=== PATIENT | female | born 1995 | race African-American/Black ===

== ENCOUNTER 2019-03-27 15:11 | Emergency (ER) | payer SELFPAY ==
[~2019-03-27] VITALS: Ht 162.6 cm; Wt 80.9 kg
[2019-03-27 15:29] VITALS: BP 126/73; TEMP 98.8
[2019-03-27] MEDS ORDERED: CRYSELLE 30 MCG1 TAB PO (16:02)
[2019-03-27 16:18] LABS: COLLECTION METHOD CLEAN CATCH
[2019-03-27 16:25] LABS: MUCOUS Present /lpf; PH 8 (5-8); SQUAMOUS EPITHELIAL 0-2 /hpf; URINE APPEARANCE Clear; URINE BACTERIA None Seen /hpf; URINE BILIRUBIN Negative (NEGATIVE); URINE BLOOD Negative (NEGATIVE); URINE COLOR Colorless; URINE GLUCOSE Negative (NEGATIVE); URINE KETONE Negative (NEGATIVE); URINE LEUKOCYTE ESTERASE Negative (NEGATIVE); URINE NITRATE Negative (NEGATIVE); URINE PROTEIN(semi-quant) Negative (NEGATIVE); URINE RBC 0-2 /hpf; URINE UROBILINOGEN Negative (NEGATIVE)
[2019-03-27 16:51] VITALS: PULSE 79
== END 2019-03-27 16:51 | disposition home or self-care (01) ==
LOC: COL.ER 15:11
PROVIDERS: Nurse Practitioner Primary Care
DX: R10.30 Lower abdominal pain, unspecified (principal); F12.90 Cannabis use, unspecified, uncomplicated

== ENCOUNTER 2019-05-06 21:58 | Emergency (ER) | payer SELFPAY ==
[~2019-05-06 21:58] MED LIST: CRYSELLE 30 MCG1 TAB PO
[2019-05-06 22:16] VITALS: TEMP 98.8
[2019-05-06 22:31] LABS: COLLECTION METHOD CLEAN CATCH
[2019-05-06 22:37] LABS: PH 8 (5-8); SQUAMOUS EPITHELIAL 0-2 /hpf; URINE APPEARANCE Clear; URINE BACTERIA Rare /hpf; URINE BILIRUBIN Negative (NEGATIVE); URINE BLOOD Negative (NEGATIVE); URINE COLOR Straw; URINE GLUCOSE Negative (NEGATIVE); URINE KETONE Negative (NEGATIVE); URINE LEUKOCYTE ESTERASE Trace (NEGATIVE); URINE NITRATE Negative (NEGATIVE); URINE PROTEIN(semi-quant) Negative (NEGATIVE); URINE RBC 0-2 /hpf; URINE UROBILINOGEN Negative (NEGATIVE)
[2019-05-07] MEDS ORDERED: DOXYCYCLINE 10100 MG PO (02:03)
[2019-05-07 02:05] VITALS: BP 131/76; PULSE 63
== END 2019-05-07 02:05 | disposition home or self-care (01) ==
LOC: COL.ER 21:58
PROVIDERS: Emergency Medicine
DX: R10.2 Pelvic and perineal pain (principal)
CPT/HCPCS: J0696

== ENCOUNTER 2019-08-27 01:56 | Emergency (ER) | payer SELFPAY ==
[~2019-08-27] VITALS: Ht 165.1 cm; Wt 81.8 kg
[~2019-08-27 01:56] MED LIST changes: +DOXYCYCLINE 10100 MG PO
[2019-08-27 01:59] VITALS: BP 136/81; TEMP 97.8
[2019-08-27 02:36] LABS: BASO % 0.3 % (0.0-2.0); EOS # 0.1 (0.0-0.7); EOS % 1.2 % (0-4.0); GRAN # 3.7 (1.4-6.5); GRAN % 61.1 % (42.2-75.2); HEMATOCRIT 41.5 % (37.0-47.0); HEMOGLOBIN 13.5 g/dl (12.5-16.0); LYMPH # 1.9 (1.2-3.4); LYMPH % 31.7 % (20.0-51.0); MEAN CELL VOLUME 90 fl (80.0-100.0); MEAN CORPUSCULAR HEMOGLOBIN 29 pg (27.0-31.0); MEAN CORPUSCULAR HGB CONC 33 g/dl (33.0-37.0); MEAN PLATELET VOLUME 10.7 fl (7.4-10.4); MONO # 0.3 (0.1-0.6); MONO % 5.5 % (1.7-9.3); PLATELET COUNT 193 K/mm3 (130-400); RED BLOOD COUNT 4.63 M/mm3 (4.10-5.30); REDCELL DISTRIBUTION WIDTH-CV 12.8 % (11.5-14.5)
[2019-08-27 02:56] LABS: ALANINE AMINOTRANSFERASE 14 U/L (9-52); ALBUMIN 4.3 gm/dL (3.5-5.0); ALKALINE PHOSPHATASE 62 U/L (50-136); ANION GAP 9 mmol/L (7-16); AST,SGOT 25 U/L (15-37); BILIRUBIN,TOTAL 0.3 mg/dL (0.0-1.0); BLOOD UREA NITROGEN 10 mg/dL (7-17); C-REACTIVE PROTEIN < 0.5 mg/dL (0.0-0.9); CARBON DIOXIDE 29 mmol/L (22-30); CHLORIDE 103 mmol/L (98-107); CREATININE, serum 0.91 (0.52-1.25); GLUCOSE 107 mg/dL (74-106); LIPASE 45 U/L (23-300); POTASSIUM 3.5 mmol/L (3.4-5.0); SODIUM 141 mmol/L (137-145); TOTAL PROTEIN 7.4 gm/dL (6.4-8.2)
[2019-08-27 03:18] LABS: COLLECTION METHOD CLEAN CATCH
[2019-08-27 03:22] LABS: MUCOUS Present /lpf; PH 6 (5-8); URINE APPEARANCE Hazy; URINE BACTERIA None Seen /hpf; URINE BILIRUBIN Negative (NEGATIVE); URINE BLOOD Negative (NEGATIVE); URINE COLOR Yellow; URINE GLUCOSE Negative (NEGATIVE); URINE KETONE Trace (NEGATIVE); URINE LEUKOCYTE ESTERASE Negative (NEGATIVE); URINE NITRATE Negative (NEGATIVE); URINE PROTEIN(semi-quant) Negative (NEGATIVE); URINE RBC 0-2 /hpf; URINE UROBILINOGEN Negative (NEGATIVE)
[2019-08-27 04:07] VITALS: PULSE 64
== END 2019-08-27 04:07 | disposition home or self-care (01) ==
LOC: COL.ER 01:56
PROVIDERS: Emergency Medicine
DX: R10.12 Left upper quadrant pain (principal); R10.11 Right upper quadrant pain
CPT/HCPCS: C9113; J2405; J7030

== ENCOUNTER → 2019-09-08 | Outpatient (CLI) | payer SELFPAY | LOC: COL.RAD 07:27 | DX: R10.11 Right upper quadrant pain (principal); R10.13 Epigastric pain ==

== ENCOUNTER 2019-11-12 00:30 | Emergency (ER) | payer SELFPAY ==
[~2019-11-12] VITALS: Ht 167.6 cm; Wt 77.3 kg
[2019-11-12 00:41] VITALS: BP 123/75; TEMP 102.5
[2019-11-12 02:25] VITALS: PULSE 112
== END 2019-11-12 02:25 | disposition home or self-care (01) ==
LOC: COL.ER 00:30
DX: B34.9 Viral infection, unspecified (principal)

== ENCOUNTER 2021-02-20 15:47 | Emergency (ER) | payer SELFPAY ==
[~2021-02-20] VITALS: Ht 167.6 cm; Wt 100.0 kg
[2021-02-20 15:53] VITALS: TEMP 98
[2021-02-20 15:58] VITALS: BP 134/77
[2021-02-20 16:50] LABS: BASO % 0.4 % (0.0-2.0); EOS # 0.1 (0.0-0.7); EOS % 2.5 % (0-4.0); GRAN % 62.4 % (42.2-75.2); HEMATOCRIT 43.6 % (37.0-47.0); LYMPH # 1.5 (1.2-3.4); LYMPH % 30.7 % (20.0-51.0); MEAN CELL VOLUME 88 fl (80.0-100.0); MEAN CORPUSCULAR HEMOGLOBIN 28 pg (27.0-31.0); MEAN CORPUSCULAR HGB CONC 32 g/dl (33.0-37.0); MEAN PLATELET VOLUME 10.5 fl (7.4-10.4); MONO # 0.2 (0.1-0.6); MONO % 3.8 % (1.7-9.3); PLATELET COUNT 248 K/mm3 (130-400); RED BLOOD COUNT 4.93 M/mm3 (4.10-5.30); REDCELL DISTRIBUTION WIDTH-CV 13.1 % (11.5-14.5)
[2021-02-20 17:02] LABS: ALBUMIN 4.4 gm/dL (3.5-5.0); BILIRUBIN,TOTAL 0.2 mg/dL (0.0-1.0); CREATININE, serum 0.71 (0.52-1.25); POTASSIUM 3.7 mmol/L (3.4-5.0); TOTAL PROTEIN 8.2 gm/dL (6.4-8.2)
[2021-02-20 17:32] LABS: TSH w REFLEX 0.837 uIU/mL (0.465-4.680)
[2021-02-20 17:50] VITALS: PULSE 71
== END 2021-02-20 17:50 | disposition home or self-care (01) ==
LOC: COL.ER 15:47
PROVIDERS: Nurse Practitioner Primary Care
DX: N92.6 Irregular menstruation, unspecified (principal); F17.210 Nicotine dependence, cigarettes, uncomplicated; Z32.02 Encounter for pregnancy test, result negative; Z88.6 Allergy status to analgesic agent

== ENCOUNTER 2021-10-29 17:54 | Emergency (ER) | payer SELFPAY ==
[~2021-10-29] VITALS: Ht 167.6 cm; Wt 88.2 kg
[2021-10-29 19:56] VITALS: BP 110/62; PULSE 70; TEMP 98.1
== END 2021-10-29 19:59 | disposition home or self-care (01) ==
LOC: COL.ER 17:54
DX: S56.911A Strain of unspecified muscles, fascia and tendons at forearm level, right arm, initial encounter (principal); V49.40XA Driver injured in collision with unspecified motor vehicles in traffic accident, initial encounter

== ENCOUNTER → 2022-03-06 | Outpatient (CLI) | payer SELFPAY ==
[~2022-03-06] MED LIST changes: +MAGIC MOUTH PO
== END ==
LOC: COL.RAD 10:49
DX: Z30.431 Encounter for routine checking of intrauterine contraceptive device (principal); R10.2 Pelvic and perineal pain

== ENCOUNTER 2022-03-16 10:29 | Emergency (ER) | payer SELFPAY ==
[~2022-03-16] VITALS: Ht 167.6 cm; Wt 86.2 kg
[~2022-03-16 10:29] MED LIST changes: -MAGIC MOUTH PO
[2022-03-16 10:35] VITALS: BP 128/88; TEMP 98.2
[2022-03-16 11:45] LABS: STREP SCREEN NEGATIVE
[2022-03-16] MEDS ORDERED: MAGIC MOUTH PO (12:14)
[2022-03-16 13:00] VITALS: PULSE 90
== END 2022-03-16 13:00 | disposition home or self-care (01) ==
LOC: COL.ER 10:29
PROVIDERS: Nurse Practitioner Primary Care
DX: J02.8 Acute pharyngitis due to other specified organisms (principal); Z28.310 Unvaccinated for COVID-19